=== PATIENT | male | born 1980 | race Caucasian/White ===

== ENCOUNTER → 2019-09-05 | Outpatient (CLI) | payer OTHER ==
--- NOTE | 2019-09-05 10:52 | KCIC ---
Examination: 3 views of the left knee HISTORY: History of left knee pain medially COMPARISON: None available. FINDINGS: The alignment of knee joint grossly appears unremarkable. There is no acute fracture or dislocation identified IMPRESSION: No acute osseous findings Electronically signed by: Todd Sewell MD (09/05/2019 10:49 AM) [id number]
== END ==
LOC: KCIC 10:24
PROVIDERS: ATTEND Nurse Practitioner Family
DX: M70.52 Other bursitis of knee, left knee (principal)
CPT/HCPCS: 73562